=== PATIENT | female | born 1995 | race African-American/Black ===

== ENCOUNTER 2020-10-30 09:38 | Emergency (ER) | payer OTHER, SELFPAY ==
--- NOTE | ~2020-10-30 | XR_ITS ---
EXAMINATION: XR chest 1V portable INDICATION: Shortness of breath TECHNIQUE: Portable AP chest at 1012 hours COMPARISON: None available FINDINGS: There are patchy opacities of the lung bases. There is no pleural effusion or pneumothorax. The cardiomediastinal silhouette is normal. IMPRESSION: 1. Patchy bibasilar airspace opacities, consistent with atelectasis versus pneumonia. Reviewed, dictated and finalized at location B. IMPRESSION: 1. Patchy bibasilar airspace opacities, consistent with atelectasis versus pneu monia.
[2020-10-30 09:43] VITALS: BP 137/97; PULSE 113; RESP 15; TEMP 37; O2SAT 97
--- NOTE | 2020-10-30 09:53 | ECG_ITS ---
Measurements Intervals [place] Rate: 91 P: 50 TX: 166 QRS: 34 QRSD: 88 T: 36 QT: 337 QTc: 416 Interpretive Statements SINUS RHYTHM BASELINE ARTIFACT- I, II, III, AVR, AVL, AVF, V3-V5 NORMAL ECG Electronically Signed On 10-30-2020 10:58:09 CDT by Eric Kwan D.O.
[2020-10-30 09:59] VITALS: PULSE 88
[2020-10-30 10:21] LABS: Anion Gap 8 mmol/L (8-16); Blood Urea Nitrogen 12 mg/dL (7-17); Calcium 9.2 mg/dL (8.4-10.2); Carbon Dioxide 24 mmol/L (22-30); Chloride 108 mmol/L (98-107); Estimated CRCL calculation 166 ml/min; Estimated Glomerular Filt Rate > 60; Glucose 107 mg/dL (65-105); Potassium 3.7 mmol/L (3.4-5.0); Sodium 140 mmol/L (137-145)
[2020-10-30 10:22] LABS: Basophils Percent Auto 0.2 % (0.2-1.2); Eosinophils Percent Auto 0.2 % (0-4.4); Hematocrit 32.5 % (37.0-47.0); Immature Granulocyte Absolute 0.09 K/mm3 (0.00-0.031); Immature Granulocyte Percent A 0.6 % (0-0.5); Lymphocytes Absolute Auto 2.47 K/mm3 (0.9-3.2); Lymphocytes Percent Auto 16.3 % (18.3-44.2); Mean Corpuscular HGB Conc 30.8 g/dl (32-36); Mean Corpuscular Hemoglobin 25.6 pg (26-34); Mean Corpuscular Volume 83.3 fl (80-100); Mean Platelet Volume 12.4 fl (7.4-10.4); Monocytes Absolute Auto 1.2 K/mm3 (0.1-0.6); Neutrophils Absolute Auto 11.3 K/mm3 (1.3-6.7); Neutrophils Percent Auto 74.7 % (45.5-73.1); Platelet Count Result 232 k/mm3 (150-375); Red Cell Distribution Width 14.9 % (11.5-14.5); White Blood Count 15.1 K/mm3 (4.5-10.0)
--- NOTE | 2020-10-30 10:29 | ED.SOB ---
HPI - SOB/Dyspnea General Chief Complaint: Shortness of Breath/Dyspnea Stated Complaint: difficulty breathing Time Seen by Provider: 10/30/20 09:51 Source: patient Mode of arrival: ambulatory Limitations: no limitations History of Present Illness HPI Narrative: This is a 25 year old female that presents to the ER for cold symptoms x 2 days. Reports cough, congestion, sore throat, and loss of sense of taste and smell. Reports some mild shortness of breath. Denies fever or chest pain. Related Data Allergies Allergy/AdvReac Type Severity Reaction Status Date / Time codeine Allergy Hives Verified 10/30/20 09:50 Review of Systems Review of Systems: Narrative: CONSTITUTIONAL: Reports chills. Denies fever ENT: Reports rhinorrhea, congestion, sore throat CARDIOVASCULAR: Denies chest pain, or edema. RESPIRATORY: Reports cough and dyspnea. All systems reviewed & are unremarkable except as noted in HPI and below PMFSH Past Medical History Medical History (Updated 10/30/20 @ 12:21 by Fe Riley PA-C) No active medical problems Social History Social History (Updated 10/30/20 @ 10:33 by Fe Riley PA-C) Substance use: never Exam Narrative: Exam Narrative: GENERAL: Well-appearing, obese, and in no acute distress. HEAD: Normocephalic, atraumatic. EYES: EOMI. ENT: Nares clear, no rhinorrhea or epistaxis. Mucous membranes moist. Oropharynx without tonsillar hypertrophy exudate or other lesions. Bilateral TMs pearly mi non-bulging NECK: Supple. No adenopathy or masses. CHEST: Clear to auscultation. No respiratory distress. No wheezes rales or rhonchi HEART: Regular rate and rhythm. No murmur heard. Normal peripheral pulses. EXTREMITIES: Normal range of motion. No edema. SKIN: Warm, dry, no rash. NEURO: No focal deficits. Alert and oriented x3. PSYCH: Normal mood and affect Course Vital Signs Vital signs: Vital Signs Temperature 98.6 F 10/30/20 09:43 Pulse Rate 113 H 10/30/20 09:43 Respiratory Rate 15 10/30/20 09:43 Blood Pressure 137/97 H 10/30/20 09:43 Pulse Oximetry 97 10/30/20 09:43 Temperature 98.6 F 10/30/20 09:43 Pulse Rate 87 06/28/21 11:21 Respiratory Rate 16 10/30/20 11:21 Blood Pressure 132/91 H 10/30/20 11:21 Pulse Oximetry 100 10/30/20 11:21 MDM - SOB/Dyspnea MDM Narrative Medical decision making narrative: Patient presents the emergency department for cold symptoms x2 days. She is afebrile and nontoxic-appearing. Mildly tachycardic upon arrival, this normalized without intervention. Oxygen saturation has remained normal on room air. CBC does show leukocytosis to 15.1. Also normocytic anemia with hemoglobin of 10. Metabolic panel without concerning findings. Strep screen is negative. SARS-CoV-2 was sent. Chest x-ray does show patchy bibasilar airspace opacities consistent with atelectasis versus pneumonia. EKG without concerning changes. Patient denies any chest pain. Patient will be started on oral antibiotics pending Covid swab. Was instructed on care of pneumonia. She is to follow-up with primary care doctor. She was given warnings to return to the ER Lab Data Attestation: I reviewed the patient's lab results. Result diagrams: 10/30/20 10:01 10/30/20 10:01 Labs: Lab Results 10/30/20 10/30/20 10/30/20 Range/Units 10:01 10:01 10:01 WBC 15.1 H (4.5-10.0) K/mm3 RBC 3.90 L (4.2-5.4) M/mm3 Hgb 10.0 L (12.0-15.0) g/dL Hct 32.5 L (37.0-47.0) % MCV 83.3 (80-100) fl MCH 25.6 L (26-34) pg MCHC 30.8 L (32-36) g/dl RDW 14.9 H (11.5-14.5) % Plt Count 232 (150-375) k/mm3 MPV 12.4 H (7.4-10.4) fl Immature Gran % (Auto) 0.6 H (0-0.5) % Neut % (Auto) 74.7 H (45.5-73.1) % Lymph % (Auto) 16.3 L (18.3-44.2) % [place] % (Auto) 8.0 (2.6-8.5) % Eos % (Auto) 0.2 (0-4.4) % Baso % (Auto) 0.2 (0.2-1.2) % Lymph # (Auto) 2.47 (0.9-3.2) K/mm3 [place] #
[2020-10-30 11:21] VITALS: BP 132/91; PULSE 87; RESP 16; O2SAT 100
[2020-10-30 12:30] VITALS: BP 118/74; PULSE 80; RESP 20; O2SAT 97
[2020-10-30 18:16] LABS: SARS-CoV-2 RNA PCR Negative
== END 2020-10-30 12:37 | disposition home or self-care (01) ==
PROVIDERS: Physician Assistant; Emergency Provider Emergency Medicine
DX: J18.9 Pneumonia, unspecified organism (principal); Z20.828 Contact with and (suspected) exposure to other viral communicable diseases
CPT/HCPCS: 36415; 71045; 80048; 85025; 87880; 93005; 99284; C9803; U0003; U0005

== ENCOUNTER 2021-02-16 12:57 | Outpatient (CLI) | payer OTHER, SELFPAY ==
[2021-02-16 13:27] LABS: Hematocrit 27.6 % (37.0-47.0); Hemoglobin 8.6 g/dL (12.0-15.0); Mean Corpuscular HGB Conc 31.2 g/dl (32-36); Mean Corpuscular Hemoglobin 26.4 pg (26-34); Mean Corpuscular Volume 84.7 fl (80-100); Mean Platelet Volume 11.2 fl (7.4-10.4); Platelet Count Result 276 k/mm3 (150-375); Red Blood Count 3.26 M/mm3 (4.2-5.4); Red Cell Distribution Width 14.6 % (11.5-14.5); White Blood Count 8.2 K/mm3 (4.5-10.0)
[2021-02-16 15:39] LABS: Free T4 Free Thyroxine 1.29 ng/mL (0.78-2.19)
[2021-02-20 07:07] LABS: Prolactin 8.8 ng/mL (***)
== END 2021-02-16 12:58 | disposition home or self-care (01) ==
PROVIDERS: Visit Provider Student in an Organized Health Care Education/Training Program
DX: N92.6 Irregular menstruation, unspecified (principal)
CPT/HCPCS: 36415; 84146; 84439; 84443; 85027

== ENCOUNTER 2021-03-19 10:12 | Outpatient (CLI) | payer OTHER, SELFPAY ==
--- NOTE | ~2021-03-19 | US_ITS ---
EXAMINATION: US pelvic complete w TV EXAM DATE: 03/19/2021 10:57 INDICATION: N92.6 - Irregular menstruation, unspecified . TECHNIQUE: Pelvic transabdominal and transvaginal sonogram was performed. There are multiple graysca le and Doppler images available for interpretation. There is no prior study for comparison. FINDINGS: Uterus measures 9.2 x 6.8 x 4.4 cm, with bicornuate uterus. Endometrial stripe measures 21 mm, mildly thickened. There is no free pelvic fluid. Right adnexa: The ovary measures 4.4 x 3.7 x 2.2 cm and is morphologically normal. Ovarian vascular f low confirmed. Left adnexa: The ovary measures 2.7 x 1.6 x 1.8 cm and is morphologically normal. Ovarian vascular fl ow confirmed. IMPRESSION: Thickened endometrium in bicornuate uterus. Differential diagnosis includes endometrial h yperplasia or less likely cancer. Consider 6 week follow-up exam at different time in patients cycle. If this thickening persists, biopsy would be indicated. Reviewed, dictated and finalized at location B. R MANAGER IMPRESSION: Thickened endometrium in bicornuate uterus. Differential diagnosis includes endometrial hyperplasia or less likely cancer. Consider 6 week follow- up exam at different time in patients cycle. If this thickening persists, biops y would be indicated.
== END 2021-03-19 10:13 | disposition home or self-care (01) ==
PROVIDERS: Visit Provider Student in an Organized Health Care Education/Training Program
DX: N92.6 Irregular menstruation, unspecified (principal); R93.89 Abnormal findings on diagnostic imaging of other specified body structures
CPT/HCPCS: 76830; 76856

== ENCOUNTER 2021-04-23 16:16 | Emergency (ER) | payer OTHER, SELFPAY ==
--- NOTE | ~2021-04-23 | XR_ITS ---
EXAMINATION: XR chest 1V portable DATE: 04/23/2021 18:05 INDICATION: Cough, shortness of breath, nasal congestion and nausea and vomiting. TECHNIQUE: frontal view of the chest was obtained. COMPARISON: Chest radiograph dated 10/30/2020 FINDINGS: Unchanged minimal relative elevation of the left hemidiaphragm. The lungs remain clear with no focal airspace opacities, pulmonary edema, pleural effusion or pneumothorax. The cardiomediastinal silhouet te is normal. Visualized bones and soft tissues are unremarkable. IMPRESSION: 1. No acute cardiopulmonary disease. Reviewed, dictated and finalized at location H. WORKER
[2021-04-23 16:32] VITALS: BP 143/72; PULSE 113; RESP 18; TEMP 38.8; O2SAT 100
[2021-04-23 17:56] VITALS: BP 134/73; PULSE 113; RESP 18; TEMP 38.3; O2SAT 98
[2021-04-23 18:39] LABS: Basophils Percent Auto 0.3 % (0.2-1.2); Eosinophils Percent Auto 0.2 % (0-4.4); Hematocrit 30.1 % (37.0-47.0); Hemoglobin 9.2 g/dL (12.0-15.0); Immature Granulocyte Absolute 0.02 K/mm3 (0.00-0.031); Immature Granulocyte Percent A 0.3 % (0-0.5); Lymphocytes Absolute Auto 1.23 K/mm3 (0.9-3.2); Lymphocytes Percent Auto 20.1 % (18.3-44.2); Mean Corpuscular HGB Conc 30.6 g/dl (32-36); Mean Corpuscular Hemoglobin 24.7 pg (26-34); Mean Corpuscular Volume 80.9 fl (80-100); Neutrophils Absolute Auto 3.8 K/mm3 (1.3-6.7); Neutrophils Percent Auto 62.1 % (45.5-73.1); Platelet Count Result 269 k/mm3 (150-375); Red Blood Count 3.72 M/mm3 (4.2-5.4); Red Cell Distribution Width 14.9 % (11.5-14.5); White Blood Count 6.1 K/mm3 (4.5-10.0)
--- NOTE | 2021-04-23 18:39 | ED.GENADULT ---
HPI - General Adult General Chief complaint: Upper Respiratory Infection Stated complaint: UPPER RESP, BODY ACHES Time Seen by Provider: 04/23/21 17:53 Source: patient and RN notes reviewed History of Present Illness HPI narrative: Patient is a 26 y/o female complaining of sore throat, body ache for last 2 days. She describes her throat pain as a soreness. She rates her discomfort as 9/10. There is no known alleviating or exacerbating factor. She also has fever, cough and vomiting. Related Data Allergies Allergy/AdvReac Type Severity Reaction Status Date / Time acetaminophen Allergy Mild Hives Verified 04/23/21 18:04 [From Tylenol-Codeine #3] codeine Allergy Mild Hives Verified 04/23/21 18:04 loratadine [From Claritin] Allergy Mild Hives Verified 04/23/21 18:04 cefaclor [From Ceclor] Allergy Hives Verified 04/23/21 18:04 Review of Systems Constitutional: Constitutional: Denies chills, Reports fever(s), Denies headache(s) and Denies weakness Eyes: Eyes: Denies blurry vision ENT: Denies headache(s), Denies neck pain and Reports sore throat Cardiovascular: Cardiovascular: Denies chest pain and Denies dyspnea Respiratory: Respiratory: Denies cough and Denies dyspnea Gastrointestinal: Gastrointestinal: Denies abdominal pain, Denies diarrhea, Reports nausea and Reports vomiting Genitourinary: Genitourinary: Denies hematuria and Denies dysuria Musculoskeletal: Musculoskeletal: Reports as per HPI, Denies back pain and Denies neck pain Neurologic: Denies headache(s) and Denies weakness [facility] Past Medical History Medical History Asthma History of vaginal delivery x1 Family History Family History Father Diabetes mellitus Hypertension Heart disease Sibling Asthma Social History Social History Smoking status: Never smoker Alcohol intake: never Substance use: never Exam Const: General: no acute distress and well developed Orientation/consciousness: oriented to person, oriented to place, oriented to time and patient oriented x3 HENMT: Head: normocephalic Ears: external ears normal General nose exam: Normal external nose present Eyes: General: appearance normal, both eyes and all related structures Conjunctivae: conjunctivae normal Neck: Neck: normal visual inspection and full ROM Chest: Chest palpation & inspection: normal inspection of the chest and no tenderness Resp: Effort & Inspection: normal respiratory effort Auscultation: clear to auscultation bilaterally Cardio: Rate: tachycardic Rhythm: regular rhythm GI: GI Palp: No abdominal tenderness and Yes Soft to palpation Skin: General skin exam: normal color and turgor normal Neuro: General: oriented to person, oriented to place, oriented to time and patient oriented x3 Cognition (Neuro): normal cognition Extrem: General: normal to inspection, full ROM and no pedal edema Psych: Appearance: grossly normal Mental Status: mental status grossly normal Affect: normal affect Course Vital Signs Vital signs: Vital Signs Temperature 38.8 C H 04/23/21 16:32 Pulse Rate 113 H 04/23/21 16:32 Respiratory Rate 18 04/23/21 16:32 Blood Pressure 143/72 H 04/23/21 16:32 Pulse Oximetry 100 04/23/21 16:32 Temperature 38.3 C H 04/23/21 17:56 Pulse Rate 113 H 04/23/21 17:56 Respiratory Rate 18 04/23/21 17:56 Blood Pressure 134/73 04/23/21 17:56 Pulse Oximetry 98 04/23/21 17:56 Medical Decision Making Vital Signs Vital Signs: Vital Signs Temperature 38.8 C H 04/23/21 16:32 Pulse Rate 113 H 04/23/21 16:32 Respiratory Rate 18 04/23/21 16:32 Blood Pressure 143/72 H 04/23/21 16:32 Pulse Oximetry 100 04/23/21 16:32 Temperature 38.3 C H 04/23/21 17:56 Pulse Rate 113 H 04/23/21 17:56 Respiratory Rate 18 04/23/21 17:56 Blood Pressur
[2021-04-23 18:52] LABS: Add Urine Microscopic? YES; Appearance Urine Clear (Clear); Bacteria Urine Trace /hpf; Bilirubin Urine Negative (Negative); Blood Urine Negative (Negative); Color Urine Yellow (Yellow); Glucose Urine UA Negative (Negative); Ketones Urine Negative (Negative); Leukocyte Esterase Ur 1+ LEU/UL (Negative); Mucus Urine Rare /lpf; Nitrate Urine Negative (Negative); Protein Urine Negative (Negative); RBC Urine 0-2 /hpf (0-2); Specific Grav Ur 1.021 (1.001-1.035); Squamous Epithelial Cell Urine Few /hpf (Few)
[2021-04-23 18:53] LABS: Alanine Aminotransferase 21 U/L (4-35); Albumin Level 4.2 g/dL (3.5-5.1); Alkaline Phosphatase 53 U/L (38-126); Anion Gap 9 mmol/L (8-16); Aspartate Amino Transferase 26 U/L (14-36); Bilirubin,Total 0.2 mg/dL (0.2-1.3); Blood Urea Nitrogen 10 mg/dL (7-17); Calcium 8.6 mg/dL (8.4-10.2); Carbon Dioxide 24 mmol/L (22-30); Chloride 101 mmol/L (98-107); Estimated CRCL calculation 122 ml/min; Estimated Glomerular Filt Rate > 60; Glucose 96 mg/dL (65-110); Potassium 3.9 mmol/L (3.4-5.0); Sodium 134 mmol/L (137-145)
[2021-04-23] MEDS: SODIUM CHLORIDE 0.9% IV 1,000 ML 999 ML IV CONT (19:21)
[2021-04-23] MEDS: METOCLOPRAMIDE HCL INJ 10 MG/2 ML VIAL IV PUSH (19:22)
[2021-04-23] MEDS: KETOROLAC 30 MG/ML VIAL (*BKC) IV PUSH (19:23)
[2021-04-23 20:00] LABS: EDCOVIDSCREEN Positive (Negative)
[2021-04-23 21:06] VITALS: BP 95/58; PULSE 102; RESP 18; TEMP 37.2; O2SAT 98
== END 2021-04-23 21:09 | disposition home or self-care (01) ==
PROVIDERS: Emergency Provider Emergency Medicine
DX: U07.1 COVID-19 (principal); J45.909 Unspecified asthma, uncomplicated
CPT/HCPCS: 36415; 71045; 80053; 81001; 81025; 85025; 87081; 87426; 87880; 96361; 96374; 96375; 99284; C9803; J1885; J2765; J7030